=== PATIENT | female | born 1990 | race African-American/Black ===

== ENCOUNTER 2021-06-27 17:31 | Inpatient (IN) ==
[2021-06-27] MEDS ORDERED: BUTORPHANOL 2 MG/ML VIAL IV PRN (18:55)
[2021-06-27] MEDS ORDERED: LACTATED RINGERS 1,000 ML IV SCH ×2 (19:00)
[2021-06-27 19:20] LABS: Basophils % 0.1 % (0.0-0.8); Eosinophils % 0.3 % (0.00-10.9); Hemoglobin 11.7 GM/DL (12.0-16.0); Immature Granulocytes % 0.8 %; Immature Granulocytes Absolute 0.13 #; Lymphocytes % 12.8 % (21.3-54.2); Mean Corpuscular HGB Conc 32.5 GM/DL (32-36); Mean Corpuscular Volume 91.6 FL (87-102); Mean Platelet Volume 10.2 FL (9.6-12.0); Monocytes % 6.6 % (1.7-12.7); Neutrophils % 79.4 % (38.7-73.9); Platelet Count 200 T/CUMM (130-400); Red Blood Count 3.93 MC/CUMM (3.8-5.5); Red Cell Distribution Width 13.6 % (9.3-17.3); White Blood Count 15.6 T/CUMM (4-12)
[2021-06-27 19:38] LABS: Alanine Aminotransferase 16 U/L (13-56); Albumin 2.7 G/DL (3.4-5.0); Alkaline Phosphatase 102 U/L (45-117); Aspartate Amino Transferase 16 U/L (0-37); Bilirubin,Total < 0.39 MG/DL (0.20-1.00); Blood Urea Nitrogen 13 MG/DL (7-18); Calcium 9.3 MG/DL (8.5-10.1); Carbon Dioxide 25 MMOL/L (21-32); Estimated Glom Filtration Rate 144 ML/MIN; Glucose 85 MG/DL (74-106); Osmolality,Calculated 268.1 MOS/KG (273-304); Potassium 4.5 MMOL/L (3.5-5.1); Sodium 135 MMOL/L (136-145); Total Protein 7.1 G/DL (6.4-8.2)
[2021-06-27 20:01] LABS: Hepatitis B Surface Ag Quant 0.19 Index; Hepatitis B Surface Ag Result Non-Reactive (NonReactive)
[2021-06-27 20:07] LABS: HIV Antigen/Antibody Result Nonreactive (Nonreactive)
[2021-06-27] MEDS: ONDANSETRON 4 MG/2 ML VIAL IV PRN (22:36)
[2021-06-27] MEDS: MEPERIDINE 50 MG/1 ML VIAL IV PRN (22:43)
[2021-06-28] MEDS ORDERED: OXYTOCIN/LR 30 UNIT/1,000 ML BAG IV PRN (01:07)
[2021-06-28] MEDS ORDERED: ACETAMINOPHEN 500 MG TABLET PO ONE (11:57)
[2021-06-28] MEDS: ONDANSETRON 4 MG/2 ML VIAL IV PRN (17:31)
[2021-06-28] MEDS: MEPERIDINE 50 MG/1 ML VIAL IV PRN ×3 (17:31→23:57)
[2021-06-29] MEDS: ACETAMINOPHEN 500 MG TABLET PO PRN (00:02)
[2021-06-29] MEDS: ONDANSETRON 4 MG/2 ML VIAL IV PRN (00:14)
[2021-06-29] MEDS ORDERED: NALOXONE 0.4 MG/ML VIAL IV PRN (00:54)
[2021-06-29] MEDS ORDERED: hydrOXYzine HCL 25 MG/1 ML VIAL IM PRN (00:54)
[2021-06-29] MEDS ORDERED: diphenhydrAMINE 50 MG/1 ML VIAL IV PRN ×2 (00:54)
[2021-06-29] MEDS ORDERED: CITRIC ACID/SODIUM CITRATE 30 ML UDCUP PO ONE (00:54)
[2021-06-29] MEDS ORDERED: FAMOTIDINE 20 MG/2 ML VIAL IV ONE (00:54)
[2021-06-29] MEDS ORDERED: PROMETHAZINE 25 MG/1 ML VIAL IM ONE (00:54)
[2021-06-29] MEDS ORDERED: LACTATED RINGERS 1,000 ML IV ONE (00:54)
[2021-06-29] MEDS ORDERED: ePHEDrine 50 MG/ML VIAL IV PRN (00:54)
[2021-06-29] MEDS ORDERED: fentaNYL 2 MCG/ROPIV 0.2% EPID 100 ML EPIDURAL SCH (01:00)
[2021-06-29] MEDS ORDERED: AMPICILLIN INJ 2,000 MG in SODIUM CHLORIDE 0.9% 100 ML IV SCH (01:00)
[2021-06-29] MEDS ORDERED: OXYTOCIN/LR 20 UNIT/1,000 ML BAG IV SCH (01:00)
[2021-06-29] MEDS ORDERED: miSOPROStoL 200 MCG TABLET VAG ONE (01:16)
[2021-06-29 02:30] LABS: Basophils # 0.1 10*3/uL (0.0-0.2); Basophils % 0.7 % (0.0-0.8); Eosinophils % 0.1 % (0.00-10.9); Hematocrit 35.8 VOL% (35.7-47.0); Hemoglobin 12.1 GM/DL (12.0-16.0); Immature Granulocytes % 0.5 %; Immature Granulocytes Absolute 0.06 #; Lymphocytes # 0.5 10*3/uL (1.4-4.0); Mean Corpuscular HGB Conc 33.8 GM/DL (32-36); Mean Corpuscular Volume 89.3 FL (87-102); Mean Platelet Volume 10.4 FL (9.6-12.0); Monocytes % 0.6 % (1.7-12.7); Neutrophils % 94.1 % (38.7-73.9); Platelet Count 172 T/CUMM (130-400); Red Blood Count 4.01 MC/CUMM (3.8-5.5); Red Cell Distribution Width 13.5 % (9.3-17.3); White Blood Count 11.4 T/CUMM (4-12)
[2021-06-29 02:57] LABS: Lymphocytes 2 % (20-55); Segmented Neutrophils 97 % (50-85); Total Cells Counted 100
[2021-06-29 02:58] LABS: Platelet Estimate Adequate
[2021-06-29] MEDS: MEPERIDINE 50 MG/1 ML VIAL IV PRN (03:07)
[2021-06-29] MEDS: cefTRIAXone 1,000 MG in SODIUM CHLORIDE 0.9% 100 ML IV SCH (06:15)
[2021-06-29] MEDS: SERTRALINE 50 MG TABLET PO SCH (11:57)
[2021-06-29] MEDS ORDERED: ACETAMINOPHEN/CODEINE 300-30 MG TABLET ONE (12:25)
[2021-06-29] MEDS: ACETAMINOPHEN/CODEINE 300-30 MG TABLET PO PRN (12:30)
[2021-06-29] MEDS ORDERED: ACETAMINOPHEN/CODEINE 300-30 MG TABLET PO PRN (12:35)
[2021-06-29] MEDS ORDERED: IBUPROFEN 800 MG TABLET PO PRN (13:09)
[2021-06-29] MEDS ORDERED: ZALEPLON 5 MG CAPSULE PO PRN (17:30)
[2021-06-29] MEDS ORDERED: diphenhydrAMINE CAP 25 MG CAPSULE PO PRN (17:30)
[2021-06-29] MEDS ORDERED: diphenhydrAMINE CAP 25 MG CAPSULE ONE (17:33)
[2021-06-29] MEDS: DOCUSATE SODIUM 100 MG CAPSULE PO SCH (21:14)
[2021-06-30 05:22] LABS: Basophils # 0.1 10*3/uL (0.0-0.2); Basophils % 0.3 % (0.0-0.8); Hematocrit 32.7 VOL% (35.7-47.0); Hemoglobin 10.7 GM/DL (12.0-16.0); Immature Granulocytes % 6.4 %; Immature Granulocytes Absolute 2.71 #; Lymphocytes # 2.2 10*3/uL (1.4-4.0); Lymphocytes % 5.2 % (21.3-54.2); Mean Corpuscular HGB Conc 32.7 GM/DL (32-36); Mean Corpuscular Volume 90.3 FL (87-102); Mean Platelet Volume 11.2 FL (9.6-12.0); Monocytes % 4.9 % (1.7-12.7); Neutrophils % 83.2 % (38.7-73.9); Platelet Count 128 T/CUMM (130-400); Red Blood Count 3.62 MC/CUMM (3.8-5.5); Red Cell Distribution Width 13.9 % (9.3-17.3)
[2021-06-30] MEDS: cefTRIAXone 1,000 MG in SODIUM CHLORIDE 0.9% 100 ML IV SCH (05:22)
[2021-06-30 05:25] LABS: White Blood Count 42.4 T/CUMM (4-12)
[2021-06-30 05:45] LABS: Band Neutrophils 11 % (0-10); Hypochromia Slight; Lymphocytes 8 % (20-55); Segmented Neutrophils 79 % (50-85); Total Cells Counted 100
[2021-06-30 05:47] LABS: Microcytosis 1+; Polychromasia Slight
[2021-06-30 06:37] LABS: RBC,Urine 21 /HPF (0-4); Squamous Epithelial Cell,Urine Few /HPF (0-10); Urine Appearance Clear (Clear); Urine Color Yellow (Yellow); Urine pH 6.5 (4.5-8.0)
[2021-06-30 06:38] LABS: Bilirubin,Urine Negative (Negative); Blood, Urine Large mg/dL (Negative); Glucose,Urine (UA) Negative (Negative); Ketones,Urine Negative (Negative); Nitrite,Urine Negative (Negative); Protein,Urine Negative (Negative)
[2021-06-30] MEDS ORDERED: AZITHROMYCIN 250 MG TABLET PO ONE (08:00)
[2021-06-30] MEDS: SERTRALINE 50 MG TABLET PO SCH (08:47)
[2021-06-30] MEDS: DOCUSATE SODIUM 100 MG CAPSULE PO SCH ×2 (08:47→21:23)
[2021-06-30] MEDS: ACETAMINOPHEN 500 MG TABLET PO PRN (08:50)
[2021-06-30 11:53] LABS: Basophils # 0.1 10*3/uL (0.0-0.2); Basophils % 0.3 % (0.0-0.8); Eosinophils % 0.1 % (0.00-10.9); Hematocrit 33.1 VOL% (35.7-47.0); Immature Granulocytes % 5.6 %; Lymphocytes # 2.7 10*3/uL (1.4-4.0); Lymphocytes % 6.4 % (21.3-54.2); Mean Corpuscular HGB Conc 33.2 GM/DL (32-36); Mean Corpuscular Volume 90.9 FL (87-102); Mean Platelet Volume 10.8 FL (9.6-12.0); Monocytes % 4.1 % (1.7-12.7); Neutrophils % 83.5 % (38.7-73.9); Platelet Count 135 T/CUMM (130-400); Red Blood Count 3.64 MC/CUMM (3.8-5.5); Red Cell Distribution Width 13.9 % (9.3-17.3)
[2021-06-30 11:58] LABS: White Blood Count 42.5 T/CUMM (4-12)
[2021-06-30 12:17] LABS: Platelet Estimate Adequate
[2021-06-30] MEDS ORDERED: LACTATED RINGERS 1,000 ML IV SCH (12:30)
[2021-06-30 12:31] LABS: Band Neutrophils 3 % (0-10); Eosinophils 1 % (0-10); Lymphocytes 3 % (20-55); Nucleated Red Blood Cells 0 (0-5); Segmented Neutrophils 91 % (50-85); Total Cells Counted 100
[2021-06-30] MEDS: ACETAMINOPHEN/CODEINE 300-30 MG TABLET PO PRN (13:00)
[2021-06-30] MEDS: PIPERACILLIN/TAZOBACTAM 3,375 MG in SODIUM CHLORIDE 0.9% 100 ML IV SCH ×2 (13:00→20:50)
[2021-06-30] MEDS ORDERED: MEPERIDINE 50 MG/1 ML VIAL IV PRN (17:59)
[2021-06-30] MEDS ORDERED: PROMETHAZINE 25 MG/1 ML VIAL IM PRN (18:00)
[2021-07-01] MEDS ORDERED: SODIUM CHLORIDE 0.9% 100 ML IV ONE (05:18)
[2021-07-01] MEDS: PIPERACILLIN/TAZOBACTAM 3,375 MG in SODIUM CHLORIDE 0.9% 100 ML IV SCH (05:21)
[2021-07-01] MEDS: cefTRIAXone 1,000 MG in SODIUM CHLORIDE 0.9% 100 ML IV SCH ×2 (07:00→08:48)
[2021-07-01 07:20] VITALS: BP 124/65
[2021-07-01 07:40] LABS: Basophils # 0.1 10*3/uL (0.0-0.2); Basophils % 0.3 % (0.0-0.8); Eosinophils # 0.1 10*3/uL (0.0-0.87); Eosinophils % 0.5 % (0.00-10.9); Hematocrit 33.3 VOL% (35.7-47.0); Hemoglobin 10.8 GM/DL (12.0-16.0); Immature Granulocytes % 5.2 %; Immature Granulocytes Absolute 1.43 #; Lymphocytes % 10.7 % (21.3-54.2); Mean Corpuscular HGB Conc 32.4 GM/DL (32-36); Mean Corpuscular Volume 91.5 FL (87-102); Mean Platelet Volume 10.9 FL (9.6-12.0); Neutrophils % 80.3 % (38.7-73.9); Platelet Count 141 T/CUMM (130-400); Red Blood Count 3.64 MC/CUMM (3.8-5.5); White Blood Count 27.7 T/CUMM (4-12)
[2021-07-01 07:58] LABS: Hypochromia Slight; Lymphocytes 11 % (20-55); Microcytosis Slight; Platelet Estimate Adequate; Segmented Neutrophils 88 % (50-85); Total Cells Counted 100
[2021-07-01] MEDS: SERTRALINE 50 MG TABLET PO SCH (08:45)
[2021-07-01] MEDS: DOCUSATE SODIUM 100 MG CAPSULE PO SCH (08:46)
== END 2021-07-01 13:00 | disposition home or self-care (01) | DRG 805 ==
LOC: N.LDOUT 17:31 → N.LD 17:36 → N.OB 06-29 11:02
PROVIDERS: ADMIT Obstetrics & Gynecology; ATTEND Obstetrics & Gynecology